=== PATIENT | male | born 1970 | race Caucasian/White ===

== ENCOUNTER 2022-07-16 10:20 | Outpatient (CLI) | payer OTHER, SELFPAY ==
[2022-07-16 15:07] LABS: Chloride* 101 mmol/L (96-114)
[2022-07-16 15:08] LABS: Sodium* 136 mmol/L (135-149)
[2022-07-16 15:10] LABS: Alanine Aminotransferase* 25 U/L (4-50); Blood Urea Nitrogen* 15 mg/dL (7-30); Carbon Dioxide* 27 mmol/L (20-32); Cholesterol* 160 mg/dL (90-199); Creatinine* 0.9 mg/dL (0.5-1.5); Estimated Glomerular Filt Rate 103 ml/min; Potassium* 4.5 mmol/L (3.6-5.1)
[2022-07-16 15:11] LABS: Calcium* 9.4 mg/dL (8.4-10.6); Glucose* 87 mg/dL (60-115); HDL Cholesterol* 54 mg/dL (>=40); LDL Cholesterol Calculated 83 mg/dL (<100); Triglycerides* 115 mg/dL (40-149)
[2022-07-16 15:30] LABS: PSA Screen* 3.33 ng/mL (0.10-4.00)
== END 2022-07-16 10:21 | disposition home or self-care (01) ==
PROVIDERS: PCP Family Medicine; Visit Provider Family Medicine
DX: E78.5 Hyperlipidemia, unspecified (principal); I10 Essential (primary) hypertension; Z12.5 Encounter for screening for malignant neoplasm of prostate
CPT/HCPCS: 80048; 80061; 84153; 84460

== ENCOUNTER 2023-07-23 10:04 | Outpatient (CLI) | payer OTHER, SELFPAY | END 2023-07-23 10:05 | disposition home or self-care (01) | PROVIDERS: PCP Family Medicine; Visit Provider Family Medicine | DX: Z00.00 Encounter for general adult medical examination without abnormal findings (principal); E78.2 Mixed hyperlipidemia; I10 Essential (primary) hypertension; M10.9 Gout, unspecified; Z12.5 Encounter for screening for malignant neoplasm of prostate | CPT/HCPCS: 80048; 80061; 80076; 84153; 84550 ==

== ENCOUNTER 2023-12-11 08:40 | Outpatient (CLI) | payer OTHER, SELFPAY | END 2023-12-11 08:41 | disposition home or self-care (01) | LOC: NFLDREF 12-12 12:48 | PROVIDERS: PCP Family Medicine; Referring Provider Family Medicine; Visit Provider Family Medicine | DX: R97.20 Elevated prostate specific antigen [PSA] (principal) | CPT/HCPCS: 84153 ==

== ENCOUNTER 2024-07-28 09:27 | Outpatient (CLI) | payer OTHER, SELFPAY | END 2024-07-28 09:28 | disposition home or self-care (01) | PROVIDERS: PCP Family Medicine; Visit Provider Family Medicine | DX: E78.2 Mixed hyperlipidemia (principal); I10 Essential (primary) hypertension; R97.20 Elevated prostate specific antigen [PSA]; F41.1 Generalized anxiety disorder; M10.9 Gout, unspecified | CPT/HCPCS: 80048; 80061; 84153; 84460 ==

== ENCOUNTER 2025-02-01 09:50 | Outpatient (CLI) | payer OTHER, SELFPAY | END 2025-02-01 09:51 | disposition home or self-care (01) | LOC: NFLDREF 02-03 15:19 | PROVIDERS: PCP Family Medicine; Referring Provider Family Medicine; Visit Provider Family Medicine | DX: R97.20 Elevated prostate specific antigen [PSA] (principal) | CPT/HCPCS: 84153 ==

== ENCOUNTER 2025-08-09 14:10 | Outpatient (CLI) | payer OTHER, SELFPAY | END 2025-08-09 14:11 | disposition home or self-care (01) | LOC: NFLDREF 08-10 11:50 | PROVIDERS: PCP Family Medicine; Referring Provider Family Medicine; Visit Provider Family Medicine | DX: R97.20 Elevated prostate specific antigen [PSA] (principal); M10.9 Gout, unspecified; E78.5 Hyperlipidemia, unspecified; I10 Essential (primary) hypertension | CPT/HCPCS: 80048; 80061; 84153; 84460 ==